=== PATIENT | female | born 1995 | race Caucasian/White ===

== ENCOUNTER → 2017-04-14 | Outpatient (CLI) | payer BC | END | disposition home or self-care (01) | LOC: C.PAPS 07:59 | PROVIDERS: ATTEND Family Medicine | DX: Z01.419 Encounter for gynecological examination (general) (routine) without abnormal findings (principal) ==

== ENCOUNTER → 2017-04-14 | Outpatient (CLI) | payer BC | END | disposition home or self-care (01) | LOC: C.LABMFLN 13:54 | PROVIDERS: ATTEND Family Medicine | DX: R30.0 Dysuria (principal) ==

== ENCOUNTER → 2017-09-05 | Outpatient (CLI) | payer BC ==
--- NOTE | 2017-09-05 15:12 | MAMMOGRAPHY REPORT ---
ULTRASOUND OF RIGHT BREAST: 09/05/2017 CLINICAL HISTORY: Patient presents after she noticed a lump in the 6:00 right breast a few months ago . 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 COMPARISON: Comparison is made to exams dated: 01/23/2015 ultrasound biopsy and 01/15/2015 ultrasound - [facility]. FINDINGS: Targeted ultrasound was performed in the area of new lump pointed out by the patient, withi n the 6:00 right breast, 5 cm from the nipple. On palpation, there is a soft ovoid 2 cm mobile mass. On ultrasound, there is an oval parallel, well-circumscribed hypoechoic solid mass measuring 2.1 x 0.6 x 2.4 cm. This most likely represents a benign fibroadenoma. No significant increased vasculari ty or posterior shadowing appreciated. Additional targeted ultrasound was performed in the area of previously biopsied fibroadenoma in the 1 2:00 right breast, 4 cm from the nipple. A multilobulated isoechoic solid circumscribed mass is iden tified, measuring 2.4 x 1.0 x 2.0 cm. This has slightly increased in size comparing to a prior ultra sound performed 01/15/2015, at which time it measured 1.5 x 0.7 x 1.6 cm. The patient also reports i t is increasingly visible and bothersome. Given the interval increase in size, despite benign pathol ogy results, recommend surgical consultation for consideration of surgical excision. IMPRESSION: ACR BI-RADS CATEGORY 4: SUSPICIOUS - FOLLOW-UP RECOMMENDED 1. A previously biopsied fibroadenoma in the 12:00 right breast has increased in size from approxima tely 1.6 cm to 2.4 cm since 2014. Given the interval change, surgical consultation for discussion of possible surgical excision is recommended. 2. There is a second palpable mass in the 6:00 right breast, that has a benign appearance and most l ikely represents an additional fibroadenoma. Options include removal of this second palpable mass at time of excision in the 12:00 right breast, versus core needle biopsy versus close follow-up imaging . The patient can discuss these options at time of surgical consultation. These results and recommendations were discussed with the patient at the time of the exam. Monae Tobar M.D. ay/:09/05/2017 14:23:32 Stock Saw Operator: Cassandra FUNK)Andrey), [facility] letter sent: Abnormal 4/5 BI-RADS Code: ACR BI-RADS Category 4: Suspicious
== END | disposition home or self-care (01) ==
LOC: C.MAMM 13:42
PROVIDERS: ATTEND Family Medicine
DX: D24.1 Benign neoplasm of right breast (principal); N63.10 Unspecified lump in the right breast, unspecified quadrant

== ENCOUNTER → 2017-09-29 | Day surgery (SDC) | payer BC ==
[2017-09-18 10:44] VITALS: Ht 157.5 cm; Wt 43.6 kg
[~2017-09-29] VITALS: Ht 157.5 cm; Wt 43.6 kg
[~2017-09-29] MED LIST: ATROPINE SULFATE 0.1 MG/ML 5ML SYR IV PRN; BUPIVACAINE 0.5 % 5 MG/1 ML MPF 30ML VIAL ONE; CEFAZOLIN 2000MG IV PUSH 15 ML IV SCH; DEXAMETHASONE SOD INJ 4 MG/ML VIAL ONE; EpHEDrine SULFATE INJ 50 MG/ML AMP IV PRN; FENTANYL CITRATE INJ 50 MCG/1 ML 2 ML VIAL IV PRN; FENTANYL CITRATE INJ 50 MCG/1 ML 2 ML VIAL ONE; KETOROLAC TROMETHAMINE 30 MG/ML VIAL IV. PRN; LACTATED RINGER'S 1000ML 1,000 ML IV SCH; LIDOCAINE HCL 2% 2 ML VIAL (20MG/ML) ONE; MIDAZOLAM HCL 1 MG/ML 2ML VIAL ONE; MoRPHine SULFATE 2 MG/ML CARP IV PRN; MoRPHine SULFATE 4 MG/ML 1 ML CARP\\VIAL IV PRN; ONDANSETRON INJ 2 MG/ML 2 ML VIAL IV PRN; ONDANSETRON INJ 2 MG/ML 2 ML VIAL ONE; OXYC-57 PO; OXYCODONE/ACETAMINOPHEN 5-325 TAB PO PRN; PROPOFOL IV EMULSION 10 MG/ML 20 ML VIAL IV ONE; SODIUM CHLORIDE 0.9% 1000ML 1,000 ML IV SCH
--- NOTE | 2017-09-29 06:55 | History & Physical Bridge - SC ---
H&P Re-Evaluation Bridge Note: I have examined the patient, reviewed the History & Physical and in the interval since the performance of the History & Physical I have noted the following changes of clinical significance: No changes noted
--- NOTE | 2017-09-29 08:00 | [facility] Post Operative Brief Note ---
Immediate Operative Summary Operative Date Sep 29, 2017. Pre-Operative Diagnosis Right Breast Masses Post-Operative Diagnosis same as preop Procedure(s) Performed Right Breast Masses Excisional Biopsies x [address] Ye Neon Installer Surgeon(s) none Estimated Blood Loss 3ml Findings Consistent with Post-Op Diagnosis likely fibroadenomas Specimens A: Inferior Right Breast Mass out at 0731 B: Superior Right Breast Mass out at 0744 Drains None Anesthesia Type General Complication(s) none Disposition Accompanied Pt To Recovery: no Disposition: Recovery Room / PACU
--- NOTE | 2017-09-29 08:03 | [facility] Operative Report ---
Operative Report Operative Date Sep 29, 2017. Pre-Operative Diagnosis Right Breast Masses Post-Operative Diagnosis same as preop Procedure(s) Performed Right Breast Masses Excisional Biopsies x [address] Ye Nurse Examiner Surgeon(s) none Estimated Blood Loss 3ml Findings likely fibroadenomas Specimens A: Inferior Right Breast Mass out at 0731 B: Superior Right Breast Mass out at 0744 Drains None Anesthesia Type General Complication(s) none Disposition no Recovery Room / PACU Indications 22-year-old female with right breast masses, likely fibroadenomas. The superior mass was biopsied and passing confirmed fibroadenoma, however this has been growing in size and surgical excision was recommended. Patient has some discomfort with the inferior mass and she elected for excision of this as well. Plan for excisional biopsies of breast masses 2. The risks of the procedure were discussed, all questions were answered, and the patient agreed to proceed with surgery as planned. Description of Procedure The patient was properly identified, consented, and taken to the operating room where she was placed in the supine position. General endotracheal anesthesia was induced. SCDs and a safety belt were placed. Preoperative antibiotics were administered. The patient's bilateral chest was prepped and draped in the standard sterile fashion. Surgical timeout was performed and all parties were in agreement that this was the correct patient and procedure to be performed and we continued as planned. A transverse incision was made on the right breast overlying the inferior mass and deepened down through the subcutaneous tissue with electrocautery. Flaps were raised in all directions. The breast mass was circumferentially dissected , excised, and passed off the table as specimen. A transverse incision was made on the right breast overlying the superior mass and deepened down to subcutaneous tissues tissue with electrocautery. The breast mass was circumferentially dissected, excised, and passed off the table as specimen. Both appeared to be fibroadenomas and neither was oriented. They were sent as separate specimens. The wounds were irrigated and hemostasis was confirmed. The skin was closed with interrupted 3-0 Vicryl deep dermal sutures, followed by 4-0 Monocryl running subcuticular suture. Dermabond was placed over the wounds . The patient was extubated in the operating room and taken to the PACU where she recovered without apparent incident. All sponge, instrument and needle counts were correct at the conclusion of the procedure. The patient tolerated the procedure well. I attest to the content of the Intraoperative Record and any orders documented therein. Any exceptions are noted below.
--- NOTE | 2017-09-29 08:13 | Discharge Instructions-SurgCtr ---
Discharge Instructions Date of Service Sep 29, 2017. Visit Reason for Visit: Right Breast Masses Discharge Discharge Diagnosis / Problem: right breast masses Discharge Goals Goal(s): Decrease discomfort Activity Recommendations Activity Limitations: resume your previous activity Lifting Limitations: no more than 10 pounds, gradually increase as tolerated Anesthesia . Post Anesthesia Instructions: If you have had General Anesthesia or IV Sedation: * Do not drive today. * Resume driving when surgeon permits. * Do not make important decisions or sign legal documents today. * Call surgeon for: 1. Temperature elevations greater than 101 degrees F. 2. Uncontrollable pain. 3. Excessive bleeding. 4. Persistent nausea and vomiting. 5. Medication intolerance (nausea, vomiting or rash). * For nausea and vomiting use only clear liquids such as: tea, soda, bouillon until nausea subsides, then gradually increase diet as tolerated. * If you have any concerns or questions, call your surgeon's office. If physician is unavailable and it is an emergency, call 911 or go to the nearest emergency room. . Instructions / Follow-Up Instructions / Follow-Up He may shower starting tomorrow. Do not soak or scrub the wounds for 2 weeks. No heavy lifting or shortness activity with her chest or upper extremity for the next 2-3 days. He may increase her activity as tolerated. Recommend wearing supportive brawl decreased pain risk of seroma formation. Follow-up in 1-2 weeks in the surgery clinic as scheduled. Call surgery clinic with questions or concerns. Diet Recommendations Home Diet: resume previous diet Procedures Procedures Performed: Right Breast Masses Excisional Biopsies x 2 Pending Studies Studies pending at discharge: yes List of pending studies: Pathology right breast masses Medical Emergencies . Who to Call and When: Medical Emergencies: If at any time you feel your situation is an emergency, please call 911 immediately. . Non-Emergent Contact Non-Emergency issues call your: Surgeon Call Non-Emergent contact if: temperature is above 101.5, your pain is worsening, wound has increased drainage, wound has increased redness, wound has increased pain . . "Provider Documentation" section prepared by Jesse Ye. . [place] Drug Monitoring Program Search Results: patient reviewed within database, no issues identified
[2017-09-29 08:47] VITALS: TEMP 36.6
[2017-09-29 09:17] VITALS: BP 97/67; PULSE 72; O2SAT 100
--- NOTE | 2017-09-29 09:26 | Anesthesiology Progress Note ---
Anesthesia Post Op Note Date & Time Sep 29, 2017 at 09:25 Vital Signs Pain Intensity: 0 Vital Signs Past 12 Hours Date Time Temp Pulse Resp B/P (MAP) Pulse Ox O2 Delivery O2 Flow Rate FiO2 09/29/17 09:17 72 12 97/67 (77) 100 Room Air 09/29/17 08:47 36.6 68 12 108/72 (84) 100 Room Air 09/29/17 08:35 71 16 107/74 99 09/29/17 08:35 68 16 09/29/17 08:34 36.7 68 12 107/74 100 Room Air 09/29/17 08:30 69 21 109/78 97 09/29/17 08:30 71 21 09/29/17 08:25 77 14 104/76 09/29/17 08:25 14 09/29/17 08:21 112/64 09/29/17 08:20 82 16 100 09/29/17 08:20 78 16 09/29/17 08:15 85 14 09/29/17 08:15 82 14 102/74 100 09/29/17 08:10 87 09/29/17 08:10 87 106/70 98 09/29/17 08:10 36.5 90 12 106/70 100 Mask 6 09/29/17 06:38 37.0 90 16 108/65 (79) 100 Room Air Notes Mental Status: alert / awake / arousable, participated in evaluation Pt Amnestic to Procedure: Yes Nausea / Vomiting: adequately controlled Pain: adequately controlled Airway Patency, RR, SpO2: stable & adequate BP & HR: stable & adequate Hydration State: stable & adequate Anesthetic Complications: no major complications apparent
== END | disposition home or self-care (01) ==
LOC: X.SURG 06:31
PROVIDERS: ATTEND Surgery
DX: D24.1 Benign neoplasm of right breast (principal); F41.9 Anxiety disorder, unspecified; Z83.3 Family history of diabetes mellitus; Z83.42 Family history of familial hypercholesterolemia; Z82.49 Family history of ischemic heart disease and other diseases of the circulatory system

== ENCOUNTER → 2017-12-11 | Outpatient (CLI) | payer BC ==
[~2017-12-11] MED LIST changes: -ATROPINE SULFATE 0.1 MG/ML 5ML SYR IV PRN; -BUPIVACAINE 0.5 % 5 MG/1 ML MPF 30ML VIAL ONE; -CEFAZOLIN 2000MG IV PUSH 15 ML IV SCH; -DEXAMETHASONE SOD INJ 4 MG/ML VIAL ONE; -EpHEDrine SULFATE INJ 50 MG/ML AMP IV PRN; -FENTANYL CITRATE INJ 50 MCG/1 ML 2 ML VIAL IV PRN; -FENTANYL CITRATE INJ 50 MCG/1 ML 2 ML VIAL ONE; -KETOROLAC TROMETHAMINE 30 MG/ML VIAL IV. PRN; -LACTATED RINGER'S 1000ML 1,000 ML IV SCH; -LIDOCAINE HCL 2% 2 ML VIAL (20MG/ML) ONE; -MIDAZOLAM HCL 1 MG/ML 2ML VIAL ONE; -MoRPHine SULFATE 2 MG/ML CARP IV PRN; -MoRPHine SULFATE 4 MG/ML 1 ML CARP\\VIAL IV PRN; -ONDANSETRON INJ 2 MG/ML 2 ML VIAL IV PRN; -ONDANSETRON INJ 2 MG/ML 2 ML VIAL ONE; -OXYCODONE/ACETAMINOPHEN 5-325 TAB PO PRN; -PROPOFOL IV EMULSION 10 MG/ML 20 ML VIAL IV ONE; -SODIUM CHLORIDE 0.9% 1000ML 1,000 ML IV SCH
== END | disposition home or self-care (01) ==
LOC: C.LABMFLN 13:07
PROVIDERS: ATTEND Family Medicine
DX: R39.9 Unspecified symptoms and signs involving the genitourinary system (principal)